=== PATIENT | female | born 1940 | race Caucasian/White ===

== ENCOUNTER 2019-07-05 23:53 | Inpatient (IN) | payer MEDICARE, MEDICAID ==
[~2019-07-05] VITALS: Ht 139.7 cm; Wt 57.7 kg
[~2019-07-05 23:53] MED LIST: ALBU6.7H9 INH; ASPI-611 PO; CARV3.1244 PO; FLUC200T PO; FLUT1AER IH; GABA800T11 PO; LINE600T11 PO; LISI2.5T2 PO; MONT10TA26 PO; OXYB10TA30 PO; PANT-47 PO; SIMV-45 PO
[2019-07-06 00:58] LABS: BASOPHILS # (AUTO) 0.1 X10'3 (0-0.2); BASOPHILS % (AUTO) 0.6 % (0-1); EOSINOPHILS # (AUTO) 0.1 X10'3 (0-0.9); HEMOGLOBIN 10.5 g/dl (12.0-16.0); LYMPHOCYTES # (AUTO) 4.9 X10'3 (1.1-4.8); NEUTROPHILS # (AUTO) 9.3 X10'3 (1.8-7.7)
[2019-07-06 00:59] LABS: EOSINOPHILS % (AUTO) 0.5 % (0-6); HEMATOCRIT 32.9 % (35.0-45.0); LYMPHOCYTES % (AUTO) 30.3 % (21-51); MEAN CORPUSCULAR HEMOGLOBIN 25.6 PG (27.0-31.0); MEAN CORPUSCULAR VOLUME 79.9 FL (78-98); MEAN PLATELET VOLUME 7.5 FL (7.4-10.4); MONOCYTES # (AUTO) 1.7 X10'3 (0-0.9); MONOCYTES % (AUTO) 10.8 % (2-12); NEUTROPHILS % (AUTO) 57.8 % (42-75); PLATELET COUNT 800 X10'3 (140-440); RED BLOOD COUNT 4.12 X10'6 (4.20-5.60); RED CELL DISTRIBUTION WIDTH 17.4 % (11.5-14.5)
[2019-07-06 01:15] LABS: ALANINE AMINOTRANSFERASE 282 U/L (12-78); ALBUMIN 2.8 G/DL (3.4-5.0); ALBUMIN/GLOBULIN RATIO 0.6 (1.1-1.5); ALKALINE PHOSPHATASE 186 IU/L (46-116); ANION GAP 16 (8-16); ASPARTATE AMINO TRANSFERASE 134 U/L (10-37); BILIRUBIN,TOTAL 0.2 MG/DL (0.1-1.0); BLOOD UREA NITROGEN 72 MG/DL (7-18); CALCIUM 8.5 MG/DL (8.5-10.1); CHLORIDE 99 MMOL/L (99-107); CREATININE 3.13 MG/DL (0.40-0.90); GLUCOSE 189 MG/DL (70-104); POTASSIUM 4.4 MMOL/L (3.5-5.1); SODIUM 127 MMOL/L (135-145); TOTAL PROTEIN 7.2 G/DL (6.4-8.2); eGFR 14 ML/MIN
[2019-07-06 01:16] LABS: TOTAL CARBON DIOXIDE 12.2 MMOL/L (24-32)
[2019-07-06] MEDS ORDERED: DOXYCYCLINE 100MG CAPSULE PO STA (01:28)
[2019-07-06] MEDS ORDERED: normal saline 1000ML IV soln IV ONE (01:30)
[2019-07-06] MEDS ORDERED: CefTRIAXone 2gm/D5W 50ml 50 ML IV ONE (01:30)
[2019-07-06 02:20] LABS: ABG BASE EXCESS -18.5 mmol/L (-2.0-3.0); ABG HCO3 7.3 mmol/L (22.0-26.0); ABG OXYGEN SATURATION 97.5 % (95-98); ABG PCO2 (T) 18.4 mmHg (35.0-45.0); ABG PH (T) 7.216 (7.350-7.450); ABG PO2 (T) 109.7 mmHg (83-108); FCOHb 0.3 % (0.5-1.5); FMetHb 0.3 % (0.3-1.12); FO2Hb 96.9 % (94-100); TOTAL HEMOGLOBIN 10.9 G/dl (12.0-16.0)
[2019-07-06 02:31] LABS: PLATELET ESTIMATE INCREASED
[2019-07-06 02:32] LABS: LARGE PLATELETS MODERATE
--- NOTE | 2019-07-06 03:23 | NUR ---
Received report from Levon HANSEN in the ER. Pt arrived on the unit via gurney on R/A, hypotensive which is baseline for pt all other VSS, with her personal belongings. IV was saline locked. Pt has no signs of distress, will continue to monitor.
[2019-07-06 04:12] VITALS: BP 81/57
[2019-07-06] MEDS: sodium bicarbonate (8.4%) inj. 75 MEQ in dextrose 5% water 500ml 500 ML IV SCH ×5 (04:32→21:13)
--- NOTE | 2019-07-06 05:47 | NUR ---
MD up to evaluate patient. Clarification on lab orders : 1) Do not need to do a 2nd set of cultures as ABX already given to patient. 2) Do not need to continue the troponin and ekg set. 3) Need CBC and CMP labs
[2019-07-06] MEDS ORDERED: potassium Cl 20 mEq SR tablet PO PRN ×2 (05:55)
[2019-07-06] MEDS ORDERED: acetaminophen 325mg tablet PO PRN (05:55)
[2019-07-06] MEDS ORDERED: bisacodyl 10mg suppository rectal RC PRN (05:55)
[2019-07-06] MEDS ORDERED: potassium CL 10mEq/100ml bag 100 ML IV PRN ×2 (05:55)
[2019-07-06] MEDS ORDERED: mag hydrox/Alum hydrox/simeth 30ml oral suspension PO PRN (05:55)
[2019-07-06] MEDS ORDERED: ondansetron/PF 4mg/2ml inj IV PRN (05:55)
[2019-07-06] MEDS ORDERED: magnesium hydroxide 30ml (MOM) UD suspension PO PRN (05:55)
[2019-07-06] MEDS ORDERED: magnesium 2GM in 50ml NS 50 ML IV PRN (05:55)
[2019-07-06] MEDS ORDERED: magnesium 4gm in 100ml NS 100 ML IV PRN (05:55)
--- NOTE | 2019-07-06 06:31 | NUR ---
Problems reprioritized. Patient report given, questions answered & plan of care reviewed with Yola HANSEN.
--- NOTE | 2019-07-06 07:21 | NUR ---
Patient in room [facility]. I have received report from Kaley HANSEN and had the opportunity to ask questions and assume patient care.
[2019-07-06] MEDS: enoxaparin 30mg/0.3ml syringe SQ SCH (07:43)
[2019-07-06] MEDS: docusate sod 100mg capsule PO SCH ×2 (07:49→20:00)
[2019-07-06 07:53] VITALS: BP 96/62
[2019-07-06] MEDS: K and/or MAG REPLACEMENT MC SCH ×2 (08:00→20:00)
--- NOTE | 2019-07-06 09:17 | NUR ---
DM consult: Pt with A1c 6.0, DM education not warranted at this time. Will continue to follow. Addendum: 07/06/19 at [address] Amended: Links added.
[2019-07-06 10:49] VITALS: BP 100/60
[2019-07-06 12:06] LABS: CLARITY,URINE CLOUDY (Clear); COLOR,URINE STRAW (Yellow); GLUCOSE, URINE NEGATIVE (Neg); KETONES,URINE NEGATIVE (Neg); LEUKOCYTE ESTERASE ,URINE SMALL (Neg); NITRITES, URINE NEGATIVE (Neg); OCCULT BLOOD,URINE TRACE-INTACT (Neg); PROTEIN,URINE TRACE mg/dl (Neg); UROBILINOGEN,URINE 0.2 E.U/dL (0.2-1.0)
[2019-07-06 12:08] LABS: UA COLLECTION TYPE VOIDED
[2019-07-06 12:10] LABS: SODIUM,URINE RANDOM < 15 MEQ/L
[2019-07-06 12:17] LABS: MUCUS STRANDS NONE SEEN /LPF (Neg); SQUAMOUS EPITHELIAL CELL,UR MANY /LPF (FEW); TRANSITIONAL EPI CELLS,URINE MODERATE /HPF
[2019-07-06 12:20] LABS: BACTERIA,URINE FEW /HPF (Neg); RBC,URINE 0-2 /HPF (0-2); WBC,URINE 20-30 /HPF (0-4); YEAST FEW /HPF (NEGATIVE)
[2019-07-06 13:21] LABS: UA EOSINOPHILS NO EOS /HPF
[2019-07-06] MEDS ORDERED: albuterol 2.5 MG/3 ML nebule NEB PRN (14:10)
[2019-07-06 14:29] LABS: BASOPHILS # (AUTO) 0.1 X10'3 (0-0.2); BASOPHILS % (AUTO) 0.9 % (0-1); EOSINOPHILS # (AUTO) 0.1 X10'3 (0-0.9); WHITE BLOOD COUNT 15.8 X10'3 (4.5-11.0)
[2019-07-06 14:31] LABS: EOSINOPHILS % (AUTO) 0.6 % (0-6); HEMATOCRIT 31.3 % (35.0-45.0); LYMPHOCYTES # (AUTO) 4.1 X10'3 (1.1-4.8); LYMPHOCYTES % (AUTO) 26.2 % (21-51); MEAN CORPUSCULAR HEMOGLOBIN 25.1 PG (27.0-31.0); MEAN CORPUSCULAR HGB CONC 31.9 g/dL (33.0-36.5); MEAN CORPUSCULAR VOLUME 78.7 FL (78-98); MEAN PLATELET VOLUME 7.5 FL (7.4-10.4); MONOCYTES # (AUTO) 1.2 X10'3 (0-0.9); MONOCYTES % (AUTO) 7.4 % (2-12); NEUTROPHILS # (AUTO) 10.2 X10'3 (1.8-7.7); NEUTROPHILS % (AUTO) 64.9 % (42-75); PLATELET COUNT 661 X10'3 (140-440); RED BLOOD COUNT 3.99 X10'6 (4.20-5.60); RED CELL DISTRIBUTION WIDTH 17.4 % (11.5-14.5)
[2019-07-06 14:45] LABS: ALANINE AMINOTRANSFERASE 239 U/L (12-78); ALBUMIN 2.6 G/DL (3.4-5.0); ALBUMIN/GLOBULIN RATIO 0.6 (1.1-1.5); ALKALINE PHOSPHATASE 159 IU/L (46-116); ANION GAP 12 (8-16); ASPARTATE AMINO TRANSFERASE 126 U/L (10-37); BILIRUBIN,TOTAL 0.2 MG/DL (0.1-1.0); BLOOD UREA NITROGEN 65 MG/DL (7-18); CALCIUM 8.2 MG/DL (8.5-10.1); CHLORIDE 98 MMOL/L (99-107); CREATININE 2.71 MG/DL (0.40-0.90); GLUCOSE 141 MG/DL (70-104); POTASSIUM 4.4 MMOL/L (3.5-5.1); SODIUM 126 MMOL/L (135-145); TOTAL CARBON DIOXIDE 15.9 MMOL/L (24-32); TOTAL PROTEIN 6.8 G/DL (6.4-8.2); eGFR 17 ML/MIN
[2019-07-06 14:48] LABS: PHOSPHORUS 5.2 MG/DL (2.3-4.5)
[2019-07-06 14:53] LABS: MAGNESIUM 0.9 MG/DL (1.5-2.4)
[2019-07-06] MEDS: magnesium Cl slow-release 64mg tablet PO PRN (15:25)
--- NOTE | 2019-07-06 15:40 | NUR ---
All cares given and isolation protcol followed for Covid 19. Patient very sleepy and difficult to assist in care. . Seen by Dr tomlinson . Mg 0.9 Dr tomlinson aware. patient given slow mag PO. [place] yee called to let staff know patient is covid 19 negative. patient aware. patient straight catheted to obtain clean urine for UA. Ileostomy bag changed x2, leaking around the site. will continue to monitor.
[2019-07-06] MEDS ORDERED: SACC250C9 PO (15:54)
[2019-07-06] MEDS ORDERED: IPRA3AMP31 IH (15:54)
[2019-07-06] MEDS ORDERED: ATOR20TA66 PO (15:54)
[2019-07-06] MEDS ORDERED: INSU100V43 SQ (15:54)
[2019-07-06] MEDS ORDERED: METF-437 PO (15:55)
--- NOTE | 2019-07-06 18:44 | NUR ---
Patient appears stable. MOved to Room 349b. More alert and orientated. Commenced on mech soft carb count diet, tolerating food well. Ileostomy producing large amounts of brown liquid stool with food particles. . All cares given. Report given to Valeria Stewart RN
[2019-07-06] MEDS ORDERED: dextrose 50%-water 50ml dispensing syringe IV PRN ×2 (19:00)
[2019-07-06] MEDS ORDERED: MESSAGE TO PHARMACY PO ONE (19:00)
[2019-07-06] MEDS ORDERED: glucagon, human recombinant 1mg kit SUBCUT PRN (19:00)
[2019-07-06] MEDS ORDERED: dextrose ORAL solution 15 GM/59 ML bottle PO PRN ×2 (19:00)
--- NOTE | 2019-07-06 19:24 | NUR ---
Walked into room, patient yelling help; states back pain. O2 was not on and O2 sats in the 60's. Patient stated had taken O2 off to go to bathroom. Replaced O2 at 4L, sats came up to 98%, back pain resolved. Left at 3L and will decrease in an hour. Addendum: 07/06/19 at 1925 by Alysa Duncan RN Strike from record, incorrect patient
[2019-07-06 20:00] VITALS: BP 90/44
[2019-07-06] MEDS: insulin glargine (Lantus) pen - multi-dose SQ SCH (20:46)
[2019-07-06] MEDS: lactobacillus rhamnosus 10,000 MMU CELLS/CAPSULE PO SCH (21:13)
[2019-07-07] VITALS: BP 73/41
[2019-07-07 01:00] VITALS: BP 98/63
[2019-07-07] MEDS: CefTRIAXone 2gm/D5W 50ml 50 ML IV SCH (01:44)
[2019-07-07] MEDS: sodium bicarbonate (8.4%) inj. 75 MEQ in dextrose 5% water 500ml 500 ML IV SCH ×3 (04:32→11:47)
[2019-07-07 05:30] LABS: BASOPHILS # (AUTO) 0.1 X10'3 (0-0.2); EOSINOPHILS # (AUTO) 0.1 X10'3 (0-0.9); HEMATOCRIT 27.5 % (35.0-45.0); HEMOGLOBIN 9.3 g/dl (12.0-16.0); LYMPHOCYTES # (AUTO) 4.6 X10'3 (1.1-4.8); MONOCYTES # (AUTO) 1.4 X10'3 (0-0.9); MONOCYTES % (AUTO) 9.9 % (2-12); NEUTROPHILS # (AUTO) 7.9 X10'3 (1.8-7.7); WHITE BLOOD COUNT 14.1 X10'3 (4.5-11.0)
[2019-07-07 05:33] LABS: BASOPHILS % (AUTO) 0.9 % (0-1); EOSINOPHILS % (AUTO) 0.6 % (0-6); LYMPHOCYTES % (AUTO) 32.6 % (21-51); MEAN CORPUSCULAR HEMOGLOBIN 25.9 PG (27.0-31.0); MEAN CORPUSCULAR HGB CONC 33.6 g/dL (33.0-36.5); MEAN CORPUSCULAR VOLUME 77.1 FL (78-98); MEAN PLATELET VOLUME 7.5 FL (7.4-10.4); PLATELET COUNT 610 X10'3 (140-440); RED BLOOD COUNT 3.57 X10'6 (4.20-5.60); RED CELL DISTRIBUTION WIDTH 17.7 % (11.5-14.5)
[2019-07-07 05:52] LABS: ALANINE AMINOTRANSFERASE 224 U/L (12-78); ALBUMIN 2.4 G/DL (3.4-5.0); ALBUMIN/GLOBULIN RATIO 0.6 (1.1-1.5); ALKALINE PHOSPHATASE 150 IU/L (46-116); ANION GAP 11 (8-16); ASPARTATE AMINO TRANSFERASE 113 U/L (10-37); BILIRUBIN,TOTAL 0.2 MG/DL (0.1-1.0); BLOOD UREA NITROGEN 57 MG/DL (7-18); BUN/CREATININE RATIO 27.7 (6.6-38.0); CALCIUM 7.7 MG/DL (8.5-10.1); CHLORIDE 97 MMOL/L (99-107); CREATININE 2.06 MG/DL (0.40-0.90); GLUCOSE 124 MG/DL (70-104); POTASSIUM 3.4 MMOL/L (3.5-5.1); SODIUM 131 MMOL/L (135-145); TOTAL CARBON DIOXIDE 22.6 MMOL/L (24-32); TOTAL PROTEIN 6.3 G/DL (6.4-8.2); eGFR 23 ML/MIN
--- NOTE | 2019-07-07 06:18 | NUR ---
Problems reprioritized. Patient report given, questions answered & plan of care reviewed with TYRONE Aceves.
[2019-07-07 06:32] LABS: MAGNESIUM 0.9 MG/DL (1.5-2.4)
--- NOTE | 2019-07-07 06:46 | NUR ---
Patient in room [facility]. I have received report from Valeria Stewart RN and had the opportunity to ask questions and assume patient care.
[2019-07-07] MEDS: enoxaparin 30mg/0.3ml syringe SQ SCH (07:34)
[2019-07-07] MEDS: lactobacillus rhamnosus 10,000 MMU CELLS/CAPSULE PO SCH ×2 (07:34→21:11)
[2019-07-07] MEDS: docusate sod 100mg capsule PO SCH (07:34)
[2019-07-07] MEDS: magnesium Cl slow-release 64mg tablet PO PRN ×2 (07:34→21:11)
[2019-07-07 07:39] VITALS: BP 101/68
[2019-07-07] MEDS: K and/or MAG REPLACEMENT MC SCH ×2 (08:00→20:00)
[2019-07-07] MEDS ORDERED: pantoprazole 40mg Tablet.DR PO SCH (10:55)
[2019-07-07] MEDS ORDERED: ALBUTEROL INHALER 1 PUFF/90 MCG INHALER IH PRN (10:55)
[2019-07-07] MEDS ORDERED: ipratropium/albuterol 3ml nebule IH PRN (10:55)
[2019-07-07 11:00] VITALS: BP 80/45
[2019-07-07] MEDS: budesonide 0.5mg/2ml UD nebule IH SCH ×2 (11:16→19:22)
[2019-07-07] MEDS: oxybutynin 5mg tablet PO SCH ×2 (13:10→21:13)
[2019-07-07] MEDS: aspirin 81mg tablet.DR PO SCH (13:11)
[2019-07-07] MEDS: gabapentin 100mg capsule PO SCH (13:12)
[2019-07-07] MEDS: insulin Lispro (HumaLOG) vial - multi-dose SQ SCH ×2 (13:20→19:12)
[2019-07-07] MEDS: normal saline 1000ml 1,000 ML IV SCH (15:31)
--- NOTE | 2019-07-07 16:00 | NUR ---
patient appears comfortable no ZSOB observed. Up with PT ambulated 50 feet. Low B/P 80/45, 101/68. DR Tang aware. seen also by Dr Rodriguez. Mg and K being replaced. Ileostomy moving x2 1050mls. will continue to monitor
[2019-07-07] MEDS: albuterol 2.5 MG/3 ML nebule NEB SCH ×2 (16:58→19:23)
[2019-07-07 18:00] VITALS: BP 73/43
--- NOTE | 2019-07-07 18:23 | NUR ---
Problems reprioritized. Patient report given, questions answered & plan of care reviewed with Benito HANSEN.
[2019-07-07 18:30] VITALS: BP 95/52
--- NOTE | 2019-07-07 19:34 | NUR ---
I was unable to obtain vitals with a pulse oximeter. The patient's hands are cold. Heart rate and SpO2 could not be recorded, but breath sounds were listened to.
[2019-07-07] MEDS: carVEDilol 3.125mg tablet PO SCH (20:00)
[2019-07-07] MEDS ORDERED: atorvastatin 20mg tablet PO SCH (21:00)
[2019-07-07] MEDS ORDERED: montelukast 10mg tablet PO SCH (21:00)
[2019-07-07] MEDS: famotidine 20mg tablet PO SCH (21:13)
[2019-07-07] MEDS: insulin glargine (Lantus) pen - multi-dose SQ SCH (21:23)
[2019-07-08] VITALS: BP 93/57
[2019-07-08 00:05] VITALS: BP 98/70
[2019-07-08] MEDS: normal saline 1000ml 1,000 ML IV SCH ×2 (00:58→10:58)
[2019-07-08] MEDS: CefTRIAXone 2gm/D5W 50ml 50 ML IV SCH (02:33)
[2019-07-08] MEDS: albuterol 2.5 MG/3 ML nebule NEB SCH ×2 (03:18→08:13)
--- NOTE | 2019-07-08 03:22 | NUR ---
I was not able to obtain vitals on the patient because of cold fingers. Only breath sounds were obtained. Patient is in no respiratory distress at this time.
[2019-07-08 05:44] LABS: BASOPHILS # (AUTO) 0.1 X10'3 (0-0.2); BASOPHILS % (AUTO) 0.6 % (0-1); EOSINOPHILS # (AUTO) 0.1 X10'3 (0-0.9); EOSINOPHILS % (AUTO) 0.8 % (0-6); HEMATOCRIT 25.4 % (35.0-45.0); HEMOGLOBIN 8.4 g/dl (12.0-16.0); LYMPHOCYTES # (AUTO) 3.9 X10'3 (1.1-4.8); LYMPHOCYTES % (AUTO) 39.7 % (21-51); MEAN CORPUSCULAR HEMOGLOBIN 25.8 PG (27.0-31.0); MEAN CORPUSCULAR HGB CONC 33.1 g/dL (33.0-36.5); MEAN CORPUSCULAR VOLUME 77.9 FL (78-98); MEAN PLATELET VOLUME 7.7 FL (7.4-10.4); MONOCYTES % (AUTO) 9.8 % (2-12); NEUTROPHILS # (AUTO) 4.9 X10'3 (1.8-7.7); NEUTROPHILS % (AUTO) 49.1 % (42-75); PLATELET COUNT 481 X10'3 (140-440); RED BLOOD COUNT 3.26 X10'6 (4.20-5.60); RED CELL DISTRIBUTION WIDTH 17.4 % (11.5-14.5); WHITE BLOOD COUNT 9.9 X10'3 (4.5-11.0)
[2019-07-08 05:50] LABS: ALANINE AMINOTRANSFERASE 157 U/L (12-78); ALBUMIN 2.4 G/DL (3.4-5.0); ALBUMIN/GLOBULIN RATIO 0.7 (1.1-1.5); ALKALINE PHOSPHATASE 140 IU/L (46-116); ANION GAP 11 (8-16); ASPARTATE AMINO TRANSFERASE 89 U/L (10-37); BILIRUBIN,TOTAL 0.1 MG/DL (0.1-1.0); BLOOD UREA NITROGEN 45 MG/DL (7-18); BUN/CREATININE RATIO 26.2 (6.6-38.0); CALCIUM 7.5 MG/DL (8.5-10.1); CHLORIDE 99 MMOL/L (99-107); CREATININE 1.72 MG/DL (0.40-0.90); GLUCOSE 114 MG/DL (70-104); POTASSIUM 3.6 MMOL/L (3.5-5.1); SODIUM 131 MMOL/L (135-145); TOTAL CARBON DIOXIDE 20.9 MMOL/L (24-32); eGFR 29 ML/MIN
--- NOTE | 2019-07-08 06:12 | NUR ---
Problems reprioritized. Patient report given, questions answered & plan of care reviewed with Parker HANSEN.
[2019-07-08 06:31] LABS: MAGNESIUM 0.9 MG/DL (1.5-2.4)
[2019-07-08] MEDS ORDERED: magnesium 2GM in 50ml NS 50 ML IV PRN (06:45)
[2019-07-08] MEDS ORDERED: magnesium 4gm in 100ml NS 100 ML IV PRN (06:45)
[2019-07-08 07:00] VITALS: BP 129/72
[2019-07-08] MEDS: aspirin 81mg tablet.DR PO SCH (07:48)
[2019-07-08] MEDS: famotidine 20mg tablet PO SCH (07:48)
[2019-07-08] MEDS: gabapentin 100mg capsule PO SCH (07:49)
[2019-07-08] MEDS: lactobacillus rhamnosus 10,000 MMU CELLS/CAPSULE PO SCH (07:49)
[2019-07-08] MEDS: oxybutynin 5mg tablet PO SCH (07:49)
[2019-07-08] MEDS: carVEDilol 3.125mg tablet PO SCH (07:49)
[2019-07-08] MEDS: K and/or MAG REPLACEMENT MC SCH (08:00)
[2019-07-08] MEDS ORDERED: non-formulary drug (Fluticasone/Vilanterol (Breo Ellipta 100-25 Mcg INH) 1 PUFF) IH SCH (08:00)
[2019-07-08] MEDS: budesonide 0.5mg/2ml UD nebule IH SCH (08:13)
[2019-07-08] MEDS: insulin Lispro (HumaLOG) vial - multi-dose SQ SCH (09:09)
[2019-07-08] MEDS ORDERED: GABA-530 PO (09:54)
[2019-07-08] MEDS ORDERED: CARV3.1244 PO (09:54)
[2019-07-08 11:00] VITALS: BP 110/60
--- NOTE | 2019-07-08 13:20 | NUR ---
Patient discharged home into the care of family, patient alert, oriented, and appropriate for discharge. Patient verbalized understanding of discharge instructions, patient left with all belongings. Patient escorted down by a member of the staff into private vehicle into the care of family. Patient not on tele. Patient IV removed. Patient will follow up with primary care provider. Patient medications returned from pharmacy. Patient wound photo placed in chart.
[2019-07-19] MEDS ORDERED: EPIN0.1521 IM (18:23)
[2019-07-19] MEDS ORDERED: TIZA2TAB5 PO (18:23)
[2019-07-19] MEDS ORDERED: OMEG-79 PO (18:23)
[2019-07-19] MEDS ORDERED: ASCO125T PO (18:23)
[2019-07-19] MEDS ORDERED: PANT-47 PO (18:23)
[2019-07-19] MEDS ORDERED: METF500T PO (18:23)
[2019-07-19] MEDS ORDERED: SIMV10TA2 PO (18:23)
[2019-07-19] MEDS ORDERED: GUAI600T45 PO (18:23)
[2019-07-19] MEDS ORDERED: INSU100C4 SQ (18:23)
[2019-07-19] MEDS ORDERED: OXYB5TAB16 PO (18:23)
[2019-07-19] MEDS ORDERED: TIZA4CAP PO (18:23)
[2019-07-22] MEDS ORDERED: CEPH500C5 PO (11:30)
[2019-07-22] MEDS ORDERED: SODI650T29 PO (11:30)
== END 2019-07-08 13:20 | disposition home health service (06) | DRG 683 ==
LOC: ER 23:53 → SUR 3N 07-06 04:11 → CMPBEDREQ 07-06 06:03 → SUR 3N 07-06 17:20
PROVIDERS: ADMIT Family Medicine; ATTEND Internal Medicine
DX: N17.9 Acute kidney failure, unspecified (principal); E87.2 Acidosis; E87.3 Alkalosis; G89.29 Other chronic pain; I25.2 Old myocardial infarction; M54.9 Dorsalgia, unspecified; F12.90 Cannabis use, unspecified, uncomplicated; Z90.710 Acquired absence of both cervix and uterus; Z90.49 Acquired absence of other specified parts of digestive tract; E11.22 Type 2 diabetes mellitus with diabetic chronic kidney disease; I12.9 Hypertensive chronic kidney disease with stage 1 through stage 4 chronic kidney disease, or unspecified chronic kidney disease; K21.9 Gastro-esophageal reflux disease without esophagitis; Z03.818 Encounter for observation for suspected exposure to other biological agents ruled out; N18.3 Chronic kidney disease, stage 3 (moderate); Z93.3 Colostomy status
CPT/HCPCS: 36415; 36600; 71045; 76937; 80053; 81001; 82570; 82803; 82948; 83036; 83605; 83735; 83880; 84100; 84145; 84156; 84300; 84484; 85018; 85025; 87040; 87081; 87207; 87635; 93005; 94640; 94760; 96365; 97116; 97161; 97530; 99285; G0378; J0696; J1650; J1815; J3475; J7030; J7626

== ENCOUNTER 2020-09-09 14:34 | Emergency (ER) | payer MEDICARE, MEDICAID ==
[~2020-09-09] VITALS: Ht 142.2 cm; Wt 141.0 kg
[~2020-09-09 14:34] MED LIST changes: -ALBU6.7H9 INH; +ASCO125T PO; +ATOR20TA66 PO; -CARV3.1244 PO; +EPIN0.1521 IM; -FLUC200T PO; +GABA-530 PO; -GABA800T11 PO; +GUAI600T45 PO; +INSU100C4 SQ; +IPRA3AMP31 IH; -LINE600T11 PO; -LISI2.5T2 PO; +LOPE2CAP PO; +METF500T PO; -MONT10TA26 PO; +MONT10TA32 PO; +OMEG-79 PO; -SIMV-45 PO; +TIZA4CAP PO
[2020-09-09 18:15] VITALS: BP 105/68
== END 2020-09-09 18:19 | disposition home or self-care (01) ==
LOC: ER 14:35
DX: L02.211 Cutaneous abscess of abdominal wall (principal); I10 Essential (primary) hypertension; I25.2 Old myocardial infarction; J44.9 Chronic obstructive pulmonary disease, unspecified; E11.9 Type 2 diabetes mellitus without complications; F12.90 Cannabis use, unspecified, uncomplicated; Z90.89 Acquired absence of other organs; Z90.49 Acquired absence of other specified parts of digestive tract; Z90.710 Acquired absence of both cervix and uterus; Z98.890 Other specified postprocedural states; Z88.5 Allergy status to narcotic agent; Z79.82 Long term (current) use of aspirin; Z79.899 Other long term (current) drug therapy
CPT/HCPCS: 87070; 87077; 87186; 99283

== ENCOUNTER 2021-02-22 07:32 | Emergency (ER) | payer MEDICARE, MEDICAID ==
[~2021-02-22 07:32] MED LIST changes: -ASCO125T PO; -EPIN0.1521 IM; -GUAI600T45 PO; +LEVO500T90 PO; -METF500T PO; +MONT-40 PO; -MONT10TA32 PO; +MULT-1085 PO; -PANT-47 PO; +POTA-197 PO; -TIZA4CAP PO
[2021-02-22 07:40] VITALS: BP 126/64
[2021-02-22] MEDS ORDERED: normal saline 1000ML IV soln IVB ONE (07:50)
--- NOTE | 2021-02-22 07:54 | NUR ---
0745: 7.5 ETT PLACED AT 21CM AT TEETH. 50MG OF ROCK AND 15MG ETOMADATE GIVEN FOR SEDATION. 0754: PT IS PULSELESS, CPR STATED, 1MG EPI GIVEN. 0756: 1MG EPI GIVEN: PIV INFULTRATED, 1MG EPI GIVEN AGAIN, 1 AMP BICARB GIVEN: PIV INFULTRATED BICARB NOT GIVEN. 0758: CPR HELD FOR PULSE CHECK; NO PULSE, CPR RESTARTED; PIV RESTARTED IN RT AC, VIENS KEEP BLOWING, IO INSTALLED INTO LT TIBIA AND FUNCTIONAL. 0801: 1 AMP BICARB GIVEN, 1MG EPI GIVEN. 0803: PULSE CHECK, NO PULSE, CPR RESTARTED, 1MG EPI GIVEN. 0805: PULSE CHECK, PULSE NOTED FOR A FEW SECONDS, NO PULSE, CPR STARTED. 0809: PULSE CHECK, NO PULSE NOTED WITH PORTABLE US, NO FEMEROL PULSE NOTED 0810: PT PRONOUNCED BY DR PERDOMO 0807: 1MG EPI GIVEN.
[2021-02-22] MEDS ORDERED: etomidate 2mg/ml inj. ONE (08:00)
[2021-02-22] MEDS ORDERED: sod chloride 0.9% 10ml flush syringe IV ONE ×2 (08:00)
[2021-02-22] MEDS ORDERED: epiNEPHrine 0.1mg/ml 10ml syringe ONE (08:00)
[2021-02-22] MEDS ORDERED: rocuronium 10mg/ml inj IV ONE (08:00)
[2021-02-22] MEDS ORDERED: sodium bicarbonate (8.4%) 1 mEq/ml syringe ONE (08:00)
[2021-02-22] MEDS ORDERED: atropine 0.1mg/ml 10ml syringe ONE (08:00)
--- NOTE | 2021-02-22 08:35 | NUR ---
sputum was collected it is un known if the lab processed it as pt coded and Addendum: 02/22/21 at 1719 by Myriam Mendez RT Amended: Links added.
--- NOTE | 2021-02-22 08:45 | NUR ---
pt coded and about 5 minutes of placing on vent, sputum was collected but not sure if it was processed by lab. unable to compete vent assessment Addendum: 02/22/21 at 1727 by Myriam Mendez RT Amended: Links added.
--- NOTE | 2021-02-22 10:12 | NUR ---
Patient arrived via EMS at approx 0730 in respiratory distress. MD arrived shortly after to intubate the patient. Shortly after intubation the patient became bradycardic, then pulseless. CPR & ACLS protocol immediately started. I did not have the time or complete information to do triage documentation.
== END 2021-02-22 14:10 ==
LOC: ER 07:33
DX: R41.82 Altered mental status, unspecified (principal); J96.00 Acute respiratory failure, unspecified whether with hypoxia or hypercapnia; I46.9 Cardiac arrest, cause unspecified; E78.00 Pure hypercholesterolemia, unspecified; I10 Essential (primary) hypertension; I25.2 Old myocardial infarction; J44.9 Chronic obstructive pulmonary disease, unspecified; F12.90 Cannabis use, unspecified, uncomplicated; E11.9 Type 2 diabetes mellitus without complications; M19.90 Unspecified osteoarthritis, unspecified site; Z90.49 Acquired absence of other specified parts of digestive tract; Z90.710 Acquired absence of both cervix and uterus; Z88.8 Allergy status to other drugs, medicaments and biological substances; Z79.82 Long term (current) use of aspirin; Z79.2 Long term (current) use of antibiotics; Z79.4 Long term (current) use of insulin; Z79.899 Other long term (current) drug therapy
CPT/HCPCS: 31500; 92950; 99291; J0171; J0461; 94002